=== PATIENT | male | born 1975 | race Caucasian/White ===

== ENCOUNTER 2022-05-06 09:36 | Outpatient (CLI) | payer OTHER | END 2022-05-06 09:37 | disposition home or self-care (01) | LOC: LABBT 09:36 | PROVIDERS: ATTEND Urology | DX: Z01.818 Encounter for other preprocedural examination (principal); R97.20 Elevated prostate specific antigen [PSA]; Z20.822 Contact with and (suspected) exposure to COVID-19 | CPT/HCPCS: 87811; 93005; 93010 ==

== ENCOUNTER → 2022-05-11 | Day surgery (SDC) | payer OTHER ==
[2022-05-07 16:14] VITALS: BMI 33.2
[~2022-05-11] MED LIST: Lidocaine 1% (PF) 30 ML VIAL ONE; Lidocaine 1% MPF 2 ML VIAL ONE; Lidocaine 1% PF 5 ML VIAL ONE; Midazolam HCl 2 mg/2 ml Vial ONE; Ondansetron PF 4 MG/2 ML Vial ONE; PROPOFOL 200 MG/20 ML VIAL ONE; SUGAMMADEX SODIUM 200 MG/2 ML VIAL ONE; Sodium Chloride 0.9% 100 ML ONE; cefTRIAXone\\ROCEPHIN 2 GM VIAL ONE; ePHEDrine 50 MG/ML VIAL ONE; fentaNYL Citrate/PF 100 MCG/2 ML SYRINGE ONE
== END | disposition home or self-care (01) ==
LOC: SDC 06:10
PROVIDERS: ATTEND Urology
PROC: 0VB03ZX Excision of Prostate, Percutaneous Approach, Diagnostic (ICD-10-PCS; principal; 2022-05-11)
DX: N41.8 Other inflammatory diseases of prostate (principal); R97.20 Elevated prostate specific antigen [PSA]; M10.9 Gout, unspecified; I10 Essential (primary) hypertension; Z87.891 Personal history of nicotine dependence; Z79.899 Other long term (current) drug therapy; Z88.6 Allergy status to analgesic agent
CPT/HCPCS: G0416; J0696; J2001; J2250; J2405; J2704; J3490

== ENCOUNTER 2024-03-06 07:09 | Outpatient (CLI) | payer OTHER ==
[2024-03-06] MEDS ORDERED: Iopamidol 370 76% 100 ML VIAL ONE (10:51)
== END 2024-03-06 07:10 | disposition home or self-care (01) ==
LOC: BICCT 07:09
PROVIDERS: ATTEND Urology
DX: R31.29 Other microscopic hematuria (principal); N40.0 Benign prostatic hyperplasia without lower urinary tract symptoms
CPT/HCPCS: 74178; 82565